=== PATIENT | female | born 1980 | race African-American/Black ===

== ENCOUNTER 2016-08-25 06:58 | Emergency (ER) | payer OTHER ==
[~2016-08-25] VITALS: Ht 165.1 cm; Wt 116.0 kg
[2016-08-25 07:39] VITALS: BP 138/77
== END 2016-08-25 07:40 | disposition home or self-care (01) ==
LOC: EDUNIT# 06:58 → ED 07:01
DX: T78.3XXA Angioneurotic edema, initial encounter (principal); T46.4X5A Adverse effect of angiotensin-converting-enzyme inhibitors, initial encounter
CPT/HCPCS: 99282